=== PATIENT | male | born 1955 | race Caucasian/White ===

== ENCOUNTER 2021-04-17 14:01 | Emergency (ER) | payer OTHER, MEDICARE | END 2021-04-17 16:18 | disposition E | LOC: ER1 14:01 | DX: I46.9 Cardiac arrest, cause unspecified (principal); J44.9 Chronic obstructive pulmonary disease, unspecified; F17.200 Nicotine dependence, unspecified, uncomplicated; V86.59XA Driver of other special all-terrain or other off-road motor vehicle injured in nontraffic accident, initial encounter | CPT/HCPCS: 31500; 71045; 73030; 82962; 92950; 93005; 96374; 99284; J0171; J0461; J1170; J2060; J2310; J7030 ==